=== PATIENT | female | born 1965 | race African-American/Black ===

== ENCOUNTER → 2021-02-23 | Outpatient (CLI) | payer OTHER ==
--- NOTE | 2021-02-24 15:48 | RAD ---
EXAM: Bilateral digital screening mammogram with tomosynthesis. HISTORY: 55-year-old female presents for screening mammography. TECHNIQUE: Full-field digital craniocaudal and mediolateral oblique 2D and 3D tomosynthesis images of both breasts are obtained for evaluation. Computer aided detection was applied. COMPARISON: 04/14/2020 and 02/19/2018 BREAST PARENCHYMAL DENSITY: Level B - Scattered fibroglandular densities. FINDINGS: There has been slight interval increase in a circumscribed nodular density within the subcu taneous soft tissues of the right breast at the 3:00 subareolar location. There is also increased nod ularity within the 3:00 position of the left breast and 9:00 position of the left breast at mid depth , allowing for differences in imaging technique. There are additional areas of nodularity and asymmet ry which are stable in appearance. IMPRESSION: BI-RADS Category 0: Incomplete. Additional imaging needed. RECOMMENDATION: Further evaluation with a bilateral breast sonogram is recommended to assess areas of nodularity described above. If your mammogram demonstrates that you have dense breast tissue, which could hide abnormalities, and if you have other risk factors for breast cancer that have been identified, you might benefit from s upplemental screening tests that may be suggested by your ordering physician. Dense breast tissue, i n and of itself, is a relatively common condition. This information is not provided to cause undue c oncern, but rather to raise your awareness and to promote discussion with your physician regarding th e presence of other risk factors, in addition to dense breast tissue. A report of your mammography re sults will be sent to you and your physician. You should contact your physician if you have any ques tions or concerns regarding this report. Mammography is a sensitive method for finding small breast cancers, but it does not detect them all a nd is not a substitute for careful clinical examination. A negative mammogram does not negate a clin ically suspicious finding and should not result in delay in biopsying a clinically suspicious abnorma lity. PQRS compliance statement - Patient information was entered into a reminder system with a target due date for the next mammogram. "Our facility is accredited by the [employer] Mammography [employer]." Electronically signed by: Shannan Dyson MD (02/24/2021 3:46 PM) [id number]
== END ==
LOC: MAMMO 15:21
PROVIDERS: ATTEND Nurse Practitioner Family
DX: Z12.31 Encounter for screening mammogram for malignant neoplasm of breast (principal)
CPT/HCPCS: 77063; 77067

== ENCOUNTER → 2021-03-10 | Outpatient (CLI) | payer OTHER ==
--- NOTE | 2021-03-10 16:27 | RAD ---
EXAMINATION: US BREAST BILAT History: Recalled from screening mammogram for breast masses Comparison: Multiple mammograms including 02/23/2021. Technique: The right breast was scanned in the area of concern at 3:00. The left breast was scanned i n the areas of concern at 3:00 and 9:00. Findings: In the right breast at 3:00, 1 cm from the nipple, there is a ovoid hypoechoic, predominantly circums cribed mass just deep to the skin measuring 0.6 x 0.5 x 0.4 cm. This has some mobile debris within it but some components that are more solid appearing. This could represent a complicated cyst or possib ly a sebaceous cyst given the very superficial location. On mammogram, this appears unchanged from . In the right breast at 3:00, 5 cm from the nipple, there is an ovoid nearly anechoic circumscribe d mass measuring 0.5 x 0.3 x 0.2 cm, likely a cluster microcysts. In the left breast at 3:00, 5 cm the nipple there is an ovoid, lobulated hypoechoic mass measuring 0. 7 x 0.5 x 0.3 cm. This is likely a cluster of microcysts. At 3:00, 2 cm from nipple and at 9:00, 6 cm the nipple in the left breast there are 2 ovoid anechoic circumscribed simple cysts. The one at 3:00 measures 0.4 x 0.4 x 0.2 cm and the one at 9:00 measures 0.6 x 0.6 x 0.3 cm. No lymphadenopathy in either axilla. IMPRESSION: 1. Probably benign 0.6 cm complicated cyst or sebaceous cyst in the right breast at 3:00 1 cm from th e nipple. Recommend six-month follow-up ultrasound of the right breast to ensure stability. 2. Benign simple cysts and clustered microcysts in the left breast at 3:00 and 9:00, and benign clust ered microcysts in the right breast at 3:00 5 cm the nipple. BI-RADS category 3: Probably benign. A result and recommendation letter will be sent to the patient. Electronically signed by: Mouna Mckeon MD (03/10/2021 4:25 PM) [id number]
== END ==
LOC: US 12:39
PROVIDERS: ATTEND Nurse Practitioner Family
DX: N60.01 Solitary cyst of right breast (principal); N60.02 Solitary cyst of left breast
CPT/HCPCS: 76641

== ENCOUNTER → 2021-09-15 | Outpatient (CLI) | payer OTHER ==
--- NOTE | 2021-09-18 09:11 | RAD ---
EXAMINATION: MG DIGITAL BILAT DIAGNOSTIC MAMMO WITH JESSA AND BILATERAL BREAST ULTRASOUND History: Six-month follow-up of breast nodules. Possible new retroareolar nodule in the left breast o n cardiac exam. Comparison: 03/10/2021, 02/23/2021. Technique: Bilateral digital diagnostic mammogram views were obtained. CAD was utilized. 3-D tomosyn thesis images were acquired. FINDINGS: MAMMOGRAM: Breast Tissue Density B : There are scattered areas of fibroglandular density. There are unchanged nodular densities in the left breast at 9:00 and 3:00 middle depth. Unchanged asy mmetry in the retroareolar right breast. No new suspicious mass, architectural distortion, or calcifi cations. LEFT BREAST ULTRASOUND: No cyst or mass in the retroareolar region. No dilated ducts. The following circumscribed hypoechoic masses are minimally changed and likely corticated cyst or clustered microcysts: 3:00 2 cm the nipple, 4 x 3 x 2 mm circumscribed macrolobulated hypoechoic mass, parallel in orientat ion. 9:00 6 cm the nipple, 8 x 7 x 5 mm, hypoechoic to anechoic ovoid circumscribed cystic mass, parallel in orientation with posterior acoustic enhancement. Possible internal septation. Slightly increased i n size. 3:00 5 cm the nipple, 5 x 4 x 2 mm ovoid circumscribed hypoechoic mass, parallel in orientation. Slig htly smaller. RIGHT BREAST ULTRASOUND: 3:00 1 cm from the nipple, 3 x 3 x 3 mm hypoechoic mass with posterior acoustic enhancement. This is equally wide as tall and has slightly indistinct margins. This has decreased in size, previously 6 x 5 x 4 mm, and is slightly more echogenic, likely due to decreased size. This is likely a resolving co mplicated cyst or sebaceous cyst. 3:00 5 cm the nipple, 4 x 3 x 2 mm hypoechoic to anechoic cystic lesion with circumscribed margins, p arallel in orientation. This is likely a complicated cyst or clustered microcysts and has slightly de creased in size. Normal lymph nodes in both axillae. IMPRESSION: 1. Stable bilateral benign-appearing cystic lesions, likely clustered microcysts or complicated cyst. Decreased size of a lesion in the right breast near the skin, likely a resolving sebaceous cyst or c omplicated cyst. 2. No new abnormality. BI-RADS category 3: Probably benign. Recommend diagnostic bilateral mammogram and ultrasound in 6 months to ensure stability. Electronically signed by: Mouna Mckeon MD (09/18/2021 9:09 AM) [id number]
== END ==
LOC: US 12:43
PROVIDERS: ATTEND Nurse Practitioner Family
DX: N64.89 Other specified disorders of breast (principal); N63.23 Unspecified lump in the left breast, lower outer quadrant; N63.22 Unspecified lump in the left breast, upper inner quadrant; N63.14 Unspecified lump in the right breast, lower inner quadrant
CPT/HCPCS: 76641; 77066; G0279; 77062